=== PATIENT | female | born 1975 | race Caucasian/White ===

== ENCOUNTER 2017-04-06 05:18 | Day surgery (SDC) | payer OTHER ==
[2017-04-01 10:33] VITALS: BMI 28.3
--- NOTE | 2017-04-06 09:04 | HP ---
History & Physical Update - History History: No Change - Physical Physical: No Change - Assessment Assessment: No Change - Plan Plan: No Change (for hysteroscopy, D&C)
[2017-04-06] MEDS ORDERED: ACETAMINOPHEN 325 MG TABLET (FP) PO PRN (09:05)
[2017-04-06] MEDS ORDERED: IBUPROFEN 800 MG/8 ML IJ IVPB PRN (09:05)
[2017-04-06] MEDS ORDERED: LACTATED RINGERS SOLUTION 1,000 ML IV SCH (09:15)
[2017-04-06] MEDS ORDERED: MIDAZOLAM HCL 2 MG/2 ML SINGLE DOSE VIAL ONE (09:52)
[2017-04-06] MEDS ORDERED: PROPOFOL 20 ML ONE (09:52)
[2017-04-06] MEDS ORDERED: KETOROLAC TROMETHAMINE 30 MG/1 ML VIAL ONE (10:34)
[2017-04-06] MEDS ORDERED: oxyCODONE HCL 5 MG TABLET PO PRN (10:59)
[2017-04-06] MEDS ORDERED: ONDANSETRON 4 MG/2 ML VIAL IVPUSH PRN (10:59)
[2017-04-06] MEDS ORDERED: ACETAMINOPHEN 1000 MG/100 ML VIAL (NON FORMULARY) IVPB PRN (11:00)
[2017-04-06 12:15] VITALS: TEMP 97.9
--- NOTE | 2017-04-06 13:31 | OP ---
Operative Note - Note: Operative Date: 04/06/17 ([id number]) Pre-Operative Diagnosis: AUB, possible submucosal fibroid/polyp Operation: hysteroscopy, D&C Findings: anterior edometrial polypoid tissue Post-Operative Diagnosis: Same as Pre-op Surgeon: Keya Lima Anesthesiologist/CAREER CONSULTANT: Laura Berkowitz Anesthesia: General Specimens Removed: endometrial currettings Estimated Blood Loss (mls): 25 Operative Report Dictated: Yes
[2017-04-06 14:11] VITALS: BP 117/68; PULSE 86
--- NOTE | 2017-04-07 07:09 | OP ---
DATE OF OPERATION: 04/06/2017 PREOPERATIVE DIAGNOSIS: Abnormal uterine bleeding and suspected submucosal uterine fibroid. POSTOPERATIVE DIAGNOSIS: Abnormal uterine bleeding and suspected submucosal uterine fibroid, with anterior intrauterine polypoid tissue. PROCEDURE: Hysteroscopy, dilatation and curettage. SURGEON: Keya Lima DO SALES ASSOC: None. ANESTHESIA: General by Laura Berkowitz MD. COMPLICATIONS: Inability to enter the uterus with operative hysteroscope, resulting in cervical laceration. ESTIMATED BLOOD LOSS: 25 mL. SPECIMENS REMOVED: Included contents of uterus and endometrial curettings. COUNTS: Sponge, needle, and instrument count correct at the end of procedure. DISPOSITION: Stable to PACU. BRIEF HISTORY AND PROCEDURE: The patient is a 41-year-old female who had been seen in my office with complaints of abnormal uterine bleeding. Patient had an ultrasound and a saline infusion sonography done revealing most likely a submucosal uterine fibroid versus a polyp. Patient was counseled on her options and elected to undergo a hysteroscopy, dilation and curettage, possible myomectomy. Patient was taken to the operating room on April 06, 2017, after consents were confirmed. She was placed in the dorsal lithotomy position and given general anesthesia by Dr. Laura Berkowitz. She was prepped and draped in the usual sterile fashion and a hard timeout was performed. A speculum was placed inside the vagina. The anterior lip of the cervix was grasped with a single-tooth tenaculum, and the cervix was serially dilated to accommodate an operative hysteroscope. When the hysteroscope was attempted to be inserted into the uterine cavity there was resistance, and the tenaculum did tear from the anterior lip of the cervix, resulting in cervical laceration. A Lopez tenaculum was then applied, and the cervix was dilated even further, and again the operative hysteroscope was unable to be advanced into the uterus. At this point diagnostic hysteroscope was inserted into the uterus up to the fundus, and it appeared that no discrete submucosal fibroid was appreciated; however, there was a good amount of polypoid tissue in the anterior wall of the uterus. At this point a sharp D&C as well as a suction D&C was performed, and all the intrauterine contents were removed. After this was completed, the anterior lip of the cervix was examined, and 2 [id number] sutures were placed along the cervical laceration to achieve hemostasis. All instruments were removed from vagina. All sponge, needle, and instrument counts were reported to be correct. The patient tolerated the procedure well, recovered in stable condition in the PACU after the procedure. KEYA LIMA DO /[id number]
--- NOTE | 2017-04-07 13:51 | PATH ---
Surgical Pathology Report Patient Name: EDWIN RACHEL [facility]. Rec. #: [id number] /Age/Gender: 1975 (Age: 41) / F Account: [id number] Location: [facility] SURGICAL Taken: 04/06/2017 Received: 04/06/2017 Reported: 04/07/2017 Physicians: Keya Lima M.D. Specimen(s) Received A: ENDOMETRIAL CURETTINGS B: UTERINE CONTENTS Clinical History Submucous fibroid Final Diagnosis A. ENDOMETRIUM, CURETTAGE: FRAGMENTS OF SECRETORY ENDOMETRIUM. B. CONTENTS OF UTERUS: POLYPOID AND NON-POLYPOID FRAGMENTS OF SECRETORY ENDOMETRIUM WITH AREAS SUGGESTIVE OF ENDOMETRIAL POLYP. Electronically Signed Maxim Jordan M.D. Gross Description A. Received in formalin labeled "endometrial curetting" is a 4.0 x 2.5 x 0.3 cm aggregate of johnson-red soft tissue fragments admixed with blood clot. The formalin is filtered and the specimen is entirely submitted in 2 cassettes. B. Received in formalin labeled "contents of uterus" is a 4.5 x 3.3 x 0.4 cm aggregate of johnson-pink soft tissue fragments. The formalin is filtered and the specimen is entirely submitted in 4 cassettes. 04/06/201704/06/2017
== END 2017-04-06 14:11 | disposition home or self-care (01) ==
LOC: JASU-SURG 05:18
PROVIDERS: ATTEND Obstetrics & Gynecology
PROC: 0UDB8ZX Extraction of Endometrium, Via Natural or Artificial Opening Endoscopic, Diagnostic (ICD-10-PCS; principal; 2017-04-06 10:00)
DX: N93.9 Abnormal uterine and vaginal bleeding, unspecified (principal); N84.0 Polyp of corpus uteri; D25.0 Submucous leiomyoma of uterus; S37.63XA Laceration of uterus, initial encounter; Y83.8 Other surgical procedures as the cause of abnormal reaction of the patient, or of later complication, without mention of misadventure at the time of the procedure; Y76.3 Surgical instruments, materials and obstetric and gynecological devices (including sutures) associated with adverse incidents; Y92.234 Operating room of hospital as the place of occurrence of the external cause; Y99.9 Unspecified external cause status
CPT/HCPCS: 84703; 88305-TC; 94760

== ENCOUNTER 2018-08-24 07:00 | Inpatient (IN) | payer OTHER ==
[2018-08-24 08:08] VITALS: BMI 31.9
--- NOTE | 2018-08-24 08:21 | HP ---
Past Medical History - Admission Chief Complaint: Here for c section History of Present Illness: 42 y/o with SIUP at 39 weeks here for scheduled for elective primary section and tubal ligation. complicated by AMA, A1GDM, EFW >97% and baby with umbilical cord cyst. Pt admits to +FM, no CTX/LOF/VB. No complaints today. History Source: Patient, Medical Record Limitations to Obtaining History: No Limitations - Past Medical History ...: 3 ...Para: 2 ...Term: 2 ...: 0 ...Spon : 0 ...Induced : 0 ...Multiple Gestation: 0 ...LMP: 11/08/17 ...EDC by Sono: 08/31/18 - Past Surgical History Hx Myomectomy: No (h/o hysteroscopic myomectomy but no abdominal myomectomy) Hx Transabdominal Cerclage: No - Smoking History Smoking history: Never smoked Have you smoked in the past 12 months: No - Alcohol/Substance Use Hx Alcohol Use: No - Social History Usual Living Arrangement: Yes: With Spouse ADL: Independent History of Recent Travel: No Home Medications - Allergies Allergies/Adverse Reactions: Allergies Allergy/AdvReac Type Severity Reaction Status Date / Time No Known Drug Allergies Allergy Verified 08/24/18 07:49 - Home Medications Home Medications: Ambulatory Orders Multivitamin with Iron [Daily Sundar with Iron] 1 each PO DAILY 04/01/17 Ferrous Sulfate [Iron] 325 mg PO BID 08/24/18 Physical Exam - Maternity Vital Signs: Vital Signs Temperature 98.2 F 08/24/18 08:01 Pulse Rate 80 08/24/18 08:01 Respiratory Rate 18 08/24/18 08:01 Blood Pressure 105/63 08/24/18 08:01 O2 Sat by Pulse Oximetry (%) Constitutional: Yes: Well Nourished, No Distress, Calm Eyes: Yes: Conjunctiva Clear, EOM Intact Neck: Yes: Trachea Midline Lungs: Clear to auscultation Breast(s): Yes: WNL - Abdominal Exam/OB Fundal Height: 40 Number of Fetuses: Single Presentation: Vertex Monitor Mode: External Category: I Accelerations: Uniform Decelerations: None - Vaginal Exam/OB Vaginal Bleediing: No Amniotic Membrane Status: Intact - Physical Exam Psychiatric: Yes: Alert, Oriented Hemorrhage Risk Assessment - Risk Factors Medium Risk Factors: Yes: None High Risk Factors: Yes: None Risk Score: 1 Risk Level: Medium Risk Problem List - Problems (1) Advanced maternal age (AMA), 40 years or greater Code(s): ALP5442 - (2) Encounter for sterilization Code(s): Z30.2 - ENCOUNTER FOR STERILIZATION (3) Term Code(s): Z34.80 - ENCOUNTER FOR SUPRVSN OF NORMAL , UNSP TRIMESTER Assessment/Plan 42 y/o for elective primary section and BTL R/B/A to procedure discussed in office at length, reconfirmed today consents signed today NPO Mcdaniel anesthesia/nursing aware
[2018-08-24] MEDS ORDERED: ELECTROLYTE-148 SOLN 500 ML IV ONE (08:23)
[2018-08-24] MEDS ORDERED: CITRIC ACID/SODIUM CITRATE 30 ML UNIT-DOSE CUP PO ONE (08:23)
[2018-08-24] MEDS ORDERED: TUBERCULIN PPD 5 TU/0.1ML SYRINGE (IN PATIENT USE ONLY) ID ONE (08:45)
[2018-08-24] MEDS ORDERED: ELECTROLYTE-148 SOLN 1,000 ML IV SCH (09:00)
[2018-08-24] MEDS ORDERED: morphine SULFATE/Preservative Free 0.5 MG/ML (1cc Syringe) ONE (11:40)
[2018-08-24] MEDS ORDERED: ceFAZolin SODIUM 1 GM VIAL ONE ×2 (11:59)
[2018-08-24] MEDS ORDERED: IBUPROFEN 600 MG TABLET (FP) PO PRN (12:41)
[2018-08-24] MEDS ORDERED: OXYTOCIN 20 UNITS in 0.9% NS 20 UNIT/1,000 ML INFUS.BAG IV ONE (13:57)
[2018-08-24] MEDS: OXYTOCIN 20 UNITS in 0.9% NS 20 UNIT/1,000 ML INFUS.BAG IV SCH (14:00)
[2018-08-24] MEDS ORDERED: IBUPROFEN 800 MG/8 ML IJ IVPB PRN (14:58)
[2018-08-24] MEDS ORDERED: oxyCODONE HCL 5 MG TABLET PO PRN ×2 (14:58)
[2018-08-24] MEDS ORDERED: METHYLERGONOVINE MALEATE 0.2 MG/1 ML AMP IM PRN (14:58)
--- NOTE | 2018-08-24 20:06 | PN ---
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
--- NOTE | 2018-08-24 20:06 | OP ---
Operative Note - Note: Operative Date: 08/24/18 Pre-Operative Diagnosis: multiparity, SIUP at 39 weeks, desire for elective delivery and tubal ligation Operation: primary low transverse delivery and tubal ligation ( modified kg) Findings: normal b/l tubes and ovaries live male infant Post-Operative Diagnosis: Same as Pre-op Surgeon: Keya Lima [employer]ision Farming Coordinator: Alexei Randall Anesthesiologist/HEATING AND BLENDING SUPERVISOR: Ady Gomez Anesthesia: Spinal Specimens Removed: placenta, portions of right and left fallopian tube Estimated Blood Loss (mls): 600 Operative Report Dictated: Yes
[2018-08-24] MEDS: FERROUS SO4 325 MG TABLET (FP) PO SCH (23:19)
--- NOTE | 2018-08-25 05:53 | PN ---
Progress Note (SOAP) - Subjective Chief Complaint: Pt doing well - Current Medications Current Medications: Active Medications Acetaminophen (Tylenol -) 650 mg PO Q4H PRN PRN Reason: PAIN LEVEL 1-5 Bisacodyl (Dulcolax Suppository -) 10 mg RC PRN PRN PRN Reason: CONSTIPATION Diphtheria/Tetanus/Acell Pertussis (Boostrix -) 0.5 ml IM .ONCE ONE Stop: 08/25/18 14:01 Ferrous Sulfate (Feosol -) 325 mg PO BID COUNTS INCLUDE 234 BEDS AT THE [facility] Last Admin: 08/24/18 23:19 Dose: Not Given Oxytocin/Sodium Chloride (Normal Saline+20 Units Oxytocin -) 20 unit in 1,000 mls @ 125 mls/hr IV ASDIR COUNTS INCLUDE 234 BEDS AT THE [facility] Last Admin: 08/24/18 14:00 Dose: 125 mls/hr Ibuprofen (Motrin -) 600 mg PO Q4H PRN PRN Reason: PAIN LEVEL 1 - 3 Ibuprofen (Caldolor Injection -) 800 mg IVPB Q8H PRN PRN Reason: PAIN LEVEL 6-10 Methylergonovine Maleate (Methergine Injection -) 0.2 mg IM Q4H PRN PRN Reason: Excessive Bleeding (L&D) Oxycodone HCl (Roxicodone -) 10 mg PO Q4H PRN PRN Reason: PAIN LEVEL 7 - 10 Oxycodone HCl (Roxicodone -) 5 mg PO Q4H PRN PRN Reason: PAIN LEVEL 4 - 6 Simethicone (Mylicon -) 80 mg PO Q4H PRN PRN Reason: GAS - Objective Vital Signs: Vital Signs Temperature 97.9 F 08/25/18 02:00 Pulse Rate 90 08/25/18 02:00 Respiratory Rate 18 08/25/18 05:00 Blood Pressure 90/55 L 08/25/18 02:00 O2 Sat by Pulse Oximetry (%) 100 08/24/18 14:07 Constitutional: Yes: Well Nourished, No Distress Neck: Yes: WNL Cardiovascular: Yes: WNL Respiratory: Yes: WNL Gastrointestinal: Yes: WNL, Soft Genitourinary: Yes: WNL ....Post : Yes: Uterus firm, Uterus non-tender Breast(s): Yes: WNL Musculoskeletal: Yes: WNL Extremities: Yes: WNL Edema: No Integumentary: Yes: WNL Wound/Incision: Yes: Clean/Dry, Well Approximated Neurological: Yes: WNL, Alert, Oriented Problem List - Problems (1) delivery delivered Code(s): O82 - ENCOUNTER FOR DELIVERY WITHOUT INDICATION Assessment/Plan Pod #1 SP repeat CS BTL Plan Continue present mangement
[2018-08-25 07:37] LABS: BASO % 0.3 % (0-2.0); EOS % 0.5 % (0-4.5); HEMATOCRIT 35.6 % (32.4-45.2); HEMOGLOBIN 12.4 GM/dL (10.7-15.3); LYMPH % 7.1 % (8-40); MCH 33.1 pg (25.7-33.7); MCHC 34.9 g/dl (32.0-36.0); MEAN PLT VOLUME 9.7 fl (7.5-11.1); MONO % 6.9 % (3.8-10.2); NEUT % 85.2 % (42.8-82.8); PLATELET COUNT 211 K/MM3 (134-434); RBC 3.74 M/mm3 (3.60-5.2); RDW 13.2 % (11.6-15.6); WHITE BLOOD COUNT 12.3 K/mm3 (4.0-10.0)
[2018-08-25] MEDS ORDERED: SODIUM CHLORIDE 500 ML IV SCH (09:40)
[2018-08-25] MEDS: FERROUS SO4 325 MG TABLET (FP) PO SCH ×2 (09:46→21:51)
--- NOTE | 2018-08-25 10:04 | PN ---
Progress Note (short form) - Note Progress Note: Post op day#1.S/P C Section under spinal anesthesia with duramorph uneventful.Patient stable and c/o some pain for which she is on medication.No any anesthesia related problem.Patient DC from the anesthesia care.
[2018-08-25] MEDS ORDERED: SODIUM CHLORIDE 1,000 ML IV SCH (10:40)
[2018-08-25] MEDS: SIMETHICONE 80 MG TAB.CHEW (FP) PO PRN ×2 (11:00→16:24)
--- NOTE | 2018-08-25 11:55 | EKG ---
Test Reason : Blood Pressure : / mmHG Vent. Rate : 081 BPM Atrial Rate : 081 BPM P-R Int : 128 ms QRS Dur : 090 ms QT Int : 344 ms P-R-T Axes : 040 -08 032 degrees QTc Int : 399 ms SINUS RHYTHM WITH OCCASIONAL PREMATURE VENTRICULAR COMPLEXES LOW VOLTAGE QRS BORDERLINE ECG NO PREVIOUS ECGS AVAILABLE Confirmed by ELIJAH COBURN, BELEN ([id number]) on 08/25/2018 11:55:10 AM Referred By: BRODIE GUAN DR Confirmed By:BELEN NAVA MD
[2018-08-25] MEDS ORDERED: DIPHTH,PERTUSS(ACELL),TET 0.5 ML DISP.SYRIN IM ONE (14:00)
[2018-08-25] MEDS ORDERED: BISACODYL 10 MG SUPP.RECT RC PRN (14:58)
[2018-08-25] MEDS: OXYTOCIN 20 UNITS in 0.9% NS 20 UNIT/1,000 ML INFUS.BAG IV SCH (15:08)
[2018-08-25] MEDS: ACETAMINOPHEN 325 MG TABLET (FP) PO PRN (16:24)
[2018-08-26] MEDS: IBUPROFEN 600 MG TABLET (FP) PO PRN ×2 (02:23→21:36)
[2018-08-26] MEDS: ACETAMINOPHEN 325 MG TABLET (FP) PO PRN ×2 (02:23→21:37)
--- NOTE | 2018-08-26 06:27 | PN ---
Progress Note (SOAP) - Subjective Chief Complaint: Pt doing well - Current Medications Current Medications: Active Medications Acetaminophen (Tylenol -) 650 mg PO Q4H PRN PRN Reason: PAIN LEVEL 1-5 Last Admin: 08/26/18 02:23 Dose: 650 mg Bisacodyl (Dulcolax Suppository -) 10 mg RC PRN PRN PRN Reason: CONSTIPATION Ferrous Sulfate (Feosol -) 325 mg PO BID JUAN Last Admin: 08/25/18 21:51 Dose: 325 mg Oxytocin/Sodium Chloride (Normal Saline+20 Units Oxytocin -) 20 unit in 1,000 mls @ 125 mls/hr IV ASDIR [facility] Last Admin: 08/25/18 15:08 Dose: Not Given Sodium Chloride (Normal Saline -) 1,000 mls @ 125 mls/hr IV ASDIR [facility] Last Admin: 08/25/18 10:20 Dose: 125 mls/hr Ibuprofen (Motrin -) 600 mg PO Q4H PRN PRN Reason: PAIN LEVEL 1 - 3 Last Admin: 08/26/18 02:23 Dose: 600 mg Ibuprofen (Caldolor Injection -) 800 mg IVPB Q8H PRN PRN Reason: PAIN LEVEL 6-10 Methylergonovine Maleate (Methergine Injection -) 0.2 mg IM Q4H PRN PRN Reason: Excessive Bleeding (L&D) Oxycodone HCl (Roxicodone -) 10 mg PO Q4H PRN PRN Reason: PAIN LEVEL 7 - 10 Oxycodone HCl (Roxicodone -) 5 mg PO Q4H PRN PRN Reason: PAIN LEVEL 4 - 6 Simethicone (Mylicon -) 80 mg PO Q4H PRN PRN Reason: GAS Last Admin: 08/25/18 16:24 Dose: 80 mg - Objective Vital Signs: Vital Signs Temperature 97.9 F 08/25/18 22:00 Pulse Rate 88 08/25/18 22:00 Respiratory Rate 20 08/25/18 22:00 Blood Pressure 104/60 08/25/18 22:00 O2 Sat by Pulse Oximetry (%) 100 08/24/18 14:07 Constitutional: Yes: Well Nourished, No Distress Cardiovascular: Yes: WNL Respiratory: Yes: WNL ....Post : Yes: Uterus firm, Uterus non-tender Extremities: Yes: WNL Peripheral Pulses WNL: No Edema: No Wound/Incision: Yes: Dressing Dry and Intact Labs Lab Results: CBC, BMP 08/25/18 06:45 Problem List - Problems (1) delivery delivered Code(s): O82 - ENCOUNTER FOR DELIVERY WITHOUT INDICATION Assessment/Plan Pod #2 SP repeat CS BTL Plan Continue present mangement
--- NOTE | 2018-08-26 09:38 | OP ---
DATE OF OPERATION: 08/24/2018 PREOPERATIVE DIAGNOSES: Single intrauterine at 39 weeks, desire for elective primary delivery, desire for sterilization, multiparity. POSTOPERATIVE DIAGNOSES: Single intrauterine at 39 weeks, desire for elective primary delivery, desire for sterilization, multiparity. PROCEDURE: Primary low transverse section and bilateral tubal ligation. SURGEON: Keya Lima DO SURGICAL ENDOSCOPIST: JANES Cali ANESTHESIOLOGIST: Ady Gomez MD provided spinal anesthesia. ESTIMATED BLOOD LOSS: 600 mL COMPLICATIONS: None. SPECIMENS REMOVED: Placenta and portions of left and right fallopian tubes. DISPOSITION: Stable to PACU. COUNT: Sponge, needle, and instrument count correct. BRIEF HISTORY AND PROCEDURE: Patient is a 42-year-old female who I have been following throughout her in the office and expressed desire for an elective primary section and bilateral tubal ligation. The patient was counseled on her options in the office, and consents for and tubal ligation were signed. Patient was admitted to [facility] on August 24, 2018. Consents for the procedure were signed that morning. Risks, benefits, and alternatives were discussed. She was then taken back to the operating room and given spinal anesthesia by Dr. Ady Gomez without difficulty, placed in the dorsal supine position. A Mcdaniel catheter was placed under sterile conditions, and she was prepped and draped in the usual sterile fashion. A hard timeout was performed. A Pfannenstiel skin incision was created in the skin with scalpel and carried to the underlying layer of rectus fascia with the Bovie. The fascia was incised on either side of midline sharply, and the fascial incision was extended in a superolateral direction sharply. The fascia was tented upward and dissected off the underlying layer of rectus muscle sharply. The rectus muscle was retracted laterally, and the peritoneum was entered bluntly. A bladder blade was inserted. A transverse incision in the lower uterine segment was completed sharply and extended in a superolateral direction bluntly. The fetus was delivered from the occiput transverse position. Bilateral shoulders were delivered with ease along with the remainder of the . The cord was clamped and cut, and the was taken over to the warmer to be assessed by the nursery staff. The placenta was delivered intact and manually extracted. The uterus was exteriorized from the abdomen, inspected, and cleared of all amniotic membrane, placental tissue, and debris with a dry lap sponge. The hysterotomy was reapproximated in a double-layer closure, first using 1 Vicryl in a running locked fashion, second using 0 Biosyn in a running fashion. Excellent hemostasis was achieved. Attention was then turned to the right fallopian tube, the mid-portion which was elevated with a Castle clamp and tied off with suture and excised and sent to Pathology. The same was repeated on the left fallopian tube. Bilateral tubal ligation sites were noted to be hemostatic. Posterior cul-de-sac was suctioned. The uterus was placed back in the abdomen. Bilateral tubal sites again were noted to be hemostatic. The uterine incision was noted to be hemostatic, and all blood clot and debris were removed. At this time, the peritoneum was reapproximated using 2-0 chromic in a running fashion. The musculature was reapproximated using 2 interrupted sutures using 2-0 chromic suture. The fascia was reapproximated using 1 Vicryl in a running locked fashion. The subcutaneous tissue was irrigated and reapproximated using 1 Vicryl in a running fashion. The skin was reapproximated in a subcuticular fashion using 0 Vicryl, and Steri-Strips were applied. Sponge, needle, and instrument count was reported to be correct. The patient tolerated the procedure well, recovering in stable condition in the PACU after the procedure. KEYA LIMA DO /[id number]
[2018-08-26] MEDS: FERROUS SO4 325 MG TABLET (FP) PO SCH ×2 (09:43→21:36)
[2018-08-27 07:45] LABS: BASO % 0.4 % (0-2.0); EOS % 1.8 % (0-4.5); HEMATOCRIT 30.9 % (32.4-45.2); HEMOGLOBIN 11.1 GM/dL (10.7-15.3); MEAN CELL VOLUME 94.5 fl (80-96); MEAN PLT VOLUME 9.2 fl (7.5-11.1); MONO % 7.2 % (3.8-10.2); NEUT % 75.6 % (42.8-82.8); PLATELET COUNT 239 K/MM3 (134-434); RBC 3.27 M/mm3 (3.60-5.2); RDW 12.8 % (11.6-15.6); WHITE BLOOD COUNT 9.8 K/mm3 (4.0-10.0)
--- NOTE | 2018-08-27 09:24 | DS ---
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 Vital Signs: Vital Signs Temperature 98.4 F 08/26/18 22:00 Pulse Rate 88 08/26/18 22:00 Respiratory Rate 20 08/26/18 22:00 Blood Pressure 100/66 08/26/18 22:00 O2 Sat by Pulse Oximetry (%) 100 08/24/18 14:07 Constitutional: Yes: Well Nourished, No Distress, Calm Eyes: Yes: Conjunctiva Clear, EOM Intact HENT: Yes: Atraumatic, Normocephalic Neck: Yes: Supple, Trachea Midline Cardiovascular: Yes: Regular Rate and Rhythm Respiratory: Yes: Regular, CTA Bilaterally Gastrointestinal: Yes: Normal Bowel Sounds, Soft ....Post : Yes: Uterus firm, Uterus non-tender Wound/Incision: Yes: Clean/Dry, Well Approximated Neurological: Yes: Alert, Oriented Psychiatric: Yes: Alert, Oriented Labs: CBC, BMP 08/27/18 06:30 Delivery - Delivery Section: Primary, Low Flap Transverse Type of Anesthesia: Spinal Episiotomy/Laceration: None EBL (cc): 600 Delivery, Single - Stages of Labor Date of Delivery: 08/24/18 Time of Delivery: 12:00 Time Placenta Delivered: 12:02 Placenta: Yes: Manual Removal - Condition of Infant 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 Present: No Infant Gender: Male Weight: 9 lb Position: Left, OA Total Hours ROM (Hrs/Mins): 3mins - 1 Minute Total Score: 9 5 Minutes Total Score: 9 - Feeding Plan Initial Plan: Elected not to breastfeed exclusively throughout hospitalization Discharge Summary Reason For Visit: C SECTION Current Active Problems Advanced maternal age (AMA), 40 years or greater (Acute) delivery delivered (Acute) Encounter for sterilization (Acute) Term (Acute) Procedures: Principal: Primary LTCS and bilateral tubal ligation Hospital Course: PT admitted on 08/24/18 for scheduled primary delivery and tubal ligation. Pt underwent uncomplicated surgery and post recovery and was discharged home on post op day 3. Condition: Good - Instructions Disposition: HOME - Home Medications Comprehensive Discharge Medication List: Ambulatory Orders Multivitamin with Iron [Daily Sundar with Iron] 1 each PO DAILY 04/01/17 Ferrous Sulfate [Iron] 325 mg PO BID 08/24/18
[2018-08-27 09:57] VITALS: BP 128/79; PULSE 72; TEMP 99.1
[2018-08-27] MEDS: FERROUS SO4 325 MG TABLET (FP) PO SCH (10:17)
--- NOTE | 2018-09-03 20:39 | PATH ---
Surgical Pathology Report Patient Name: EDWIN RACHEL Med. Rec. 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 Specimen(s) Received A: PLACENTA B: RIGHT PORTION OF FALLOPIAN TUBE C: LEFT PORTION OF FALLOPIAN TUBE Clinical History , 39 weeks [id number] Fibroids removed 2017, x2 Final Diagnosis A. PLACENTA, SECTION: 446 G THIRD TRIMESTER PLACENTA WITH TRIVASCULAR UMBILICAL CORD AND MILD ACUTE CHORIOAMNIONITIS. B. FALLOPIAN TUBE, RIGHT, PARTIAL EXCISION: FULL LUMINAL PORTION OF UNREMARKABLE FALLOPIAN TUBE. C. FALLOPIAN TUBE, LEFT, PARTIAL EXCISION: FULL LUMINAL PORTION OF UNREMARKABLE FALLOPIAN TUBE. Electronically Signed Eun Musa M.D. Gross Description A. The specimen is received fresh labeled placenta and is a 446 gram, 15.0 x 13.5 x 3.3 cm. placenta with attached membranes and umbilical cord. The attached membranes are johnson, thick, cloudy and insert marginally. The umbilical cord measures 30 cm. in length and averages 1.2 cm. in diameter. The cord inserts eccentrically, 4.5 cm. to the nearest margin. No true knots or strictures are identified. Cut surface of the umbilical cord reveals 3 vessels. The surface is lira-blue with minimal fibrin deposition and appropriate caliber vessels. The maternal surface is red-brown with focal defects. Sectioning reveals red-brown, spongy parenchyma. No lesions are identified. Obstetrical Nurse sections are submitted in three cassettes as follows: 1- membrane rolls and umbilical cord; 2-3- full thickness sections of placenta. B. Received in formalin labeled "right portion of fallopian tube," is a 2.3 cm in length portion of fallopian tube. No fimbria are present. The outer surface is johnson-love and smooth. Sectioning reveals an unremarkable lumen. Obstetrical Nurse sections are submitted in one cassette. C. Received in formalin labeled "left portion of fallopian tube," is a 2.3 cm in length portion of fallopian tube. No fimbria are present. The outer surface is johnson-love and smooth. Sectioning reveals an unremarkable lumen. Obstetrical Nurse sections are submitted in one cassette. 09/02/2018 saudi09/02/2018
== END 2018-08-27 14:00 | disposition home or self-care (01) | DRG 540 ==
LOC: JLDR 07:00 → J3W 14:07
PROVIDERS: ADMIT Obstetrics & Gynecology; ATTEND Obstetrics & Gynecology
PROC: 10D00Z1 Extraction of Products of Conception, Low, Open Approach (ICD-10-PCS; principal; 2018-08-24)
PROC: 0UL70DZ Occlusion of Bilateral Fallopian Tubes with Intraluminal Device, Open Approach (ICD-10-PCS; 2018-08-24)
DX: O48.0 Post-term pregnancy (principal); O24.414 Gestational diabetes mellitus in pregnancy, insulin controlled; O36.63X0 Maternal care for excessive fetal growth, third trimester, not applicable or unspecified; O34.29 Maternal care due to uterine scar from other previous surgery; Z3A.40 40 weeks gestation of pregnancy; Z37.0 Single live birth; Z30.2 Encounter for sterilization
CPT/HCPCS: 36415; 71046-TC-FY; 85025; 88302-TC; 88307-TC; 90715; 93005; 93010; J7030

== ENCOUNTER 2018-09-04 18:23 | Emergency (ER) | payer OTHER ==
[2018-09-04 18:33] VITALS: BP 109/65; PULSE 16; TEMP 98.6; BMI 29.9
--- NOTE | 2018-09-04 19:49 | PDOC ---
History of Present Illness - General Chief Complaint: Abscess Boil Stated Complaint: ABSCESS BOIL Time Seen by Provider: 09/04/18 19:08 History Source: Patient Exam Limitations: No Limitations - History of Present Illness Initial Comments: 09/04/18 19:35 Pt is a 42yo F with PMH of anemia, GDM, s/p Cesarian section with BTL 08/25/2018 presenting to ED with complaints of "bump on the L side" and pain at the incision. Pt states she noticed the bump yesterday and started to have pain which feels sharp. Pain does not radiate. Denies drainage. She states that she is having vaginal bleeding and that it ranges from black to dark brown with clots. Denies discharge, cramps, fevers, chills, abdominal pain, n/v/d back pain. Past History - Past Medical History Allergies/Adverse Reactions: Allergies Allergy/AdvReac Type Severity Reaction Status Date / Time No Known Drug Allergies Allergy Verified 08/24/18 07:49 Home Medications: Ambulatory Orders Multivitamin with Iron [Daily Sundar with Iron] 1 each PO DAILY 04/01/17 Ferrous Sulfate [Iron] 325 mg PO BID 08/24/18 Ibuprofen [Motrin -] 600 mg PO QID PRN #28 tablet 08/27/18 Oxycodone HCl/Acetaminophen [Percocet 5-325 mg Tablet -] 1 tab PO Q4H #20 tablet MDD 6 08/27/18 Anemia: Yes (H/O) Asthma: No Cancer: No Cardiac Disorders: No COPD: No Diabetes: Yes (diet controlled) HTN: No Seizures: No Thyroid Disease: No - Immunization History Immunization Up to Date: Yes - Suicide/Smoking/Psychosocial Hx Smoking History: Never smoked Have you smoked in the past 12 months: No Hx Alcohol Use: No Drug/Substance Use Hx: No Hx Substance Use Treatment: No Review of Systems - Review of Systems Constitutional: No: Chills, Fever, Weakness HEENTM: No: Symptoms Reported Respiratory: No: Symptoms reported Cardiac (ROS): No: Symptoms Reported ABD/GI: No: Constipated, Diarrhea, Nausea, Rectal Bleeding, Vomiting : Yes: See HPI. No: Burning, Dysuria Musculoskeletal: No: Symptoms Reported Integumentary: Yes: See HPI Neurological: No: Symptoms reported *Physical Exam - Vital Signs Last Vital Signs Temp Pulse Resp BP Pulse Ox 98.6 F 16 L 18 109/65 98 09/04/18 18:29 09/04/18 18:29 09/04/18 18:29 09/04/18 18:29 09/04/18 18:29 - Physical Exam General Appearance: Yes: Nourished, Appropriately Dressed. No: Apparent Distress HEENT: positive: EOMI, ZEESHAN Neck: positive: Trachea midline, Supple. negative: Lymphadenopathy (R), Lymphadenopathy (L) Respiratory/Chest: positive: Lungs Clear, Normal Breath Sounds. negative: Crackles, Rales, Rhonchi, Stridor, Wheezing Cardiovascular: positive: Regular Rhythm, Regular Rate, S1, S2. negative: Edema , JVD, Murmur Vascular Pulses: Carotid (R): 2+, Carotid (L): 2+, Dorsalis-Pedis (R): 2+, Doralis-Pedis (L): 2+ Gastrointestinal/Abdominal: positive: Normal Bowel Sounds, Soft, Other. negative: Distended, Guarding, Rebound, Tenderness Musculoskeletal: negative: CVA Tenderness Extremity: positive: Normal Capillary Refill, Normal Inspection, Pelvis Stable. negative: Pedal Edema, Swelling, Calf Tenderness Integumentary: positive: Normal Color, Dry, Warm, Other (healing surgical incision site in lower abdomen. L side has area of exposed tissue, does not open , no drainage. Firm nodules palpated along incision. Slight tenderness on L side. No fluctuance, slight induration. No erythema. 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 Pt states she noticed the bump yesterday and started to have pain which feels sharp. Pain does not radiate. Denies drainage. She states that she is having vaginal bleeding and that it ranges from black to dark brown with clots. Denies discharge, cramps, fevers, chills, abdominal pain, n/v/d back pain. Vitals: wnl Low suspicion for abscess or uterine abscess (no vaginal discharge complaints, no abdominal pain..pain in localized to incision site on L side). No fluctuance no purulence expressed. Pt may have slight infection however no abx needed at this time. Pt advised to clean incision with soap and water. Given strict return precautions. Pt is hemodynamically stable. Will be dc home. *DC/Admit/Observation/Transfer Diagnosis at time of Disposition: Post-op pain - Discharge Dispostion Disposition: HOME Condition at time of disposition: Good Decision to Admit order: No - Referrals Referrals: Maulik Dsouza MD [Primary Care Provider] - Keya Lima DO [Staff Physician] - - Patient Instructions Additional Instructions: Ghassannataly te vieron en la [facility] por dolor y sensacin de un golpe en el sitio de la cesrea. No se ve infectado. Hay un elayne de la piel que no est completamente cerrada jacob no parece estar infectada. No creemos que tengas un absceso. Limpie el elayne diariamente con agua y jabn y squela. Asegrate de secar la piel. Regrese a la [facility] de emergencias si el dolor empeora, observa un drenaje desde el lugar de la incisin, la piel se ve ms yovanny, la protuberancia se agranda, desarrolla fiebre o si aparece algn sntoma nuevo. Cyndi You were seen in the emergency room today for pain and feeling a bump at the site of the . It does not look infected. There is an area of skin that is not completely closed but it does not appear infected. We do not think you have an abscess. Clean the area daily with soap and water and pat it dry. Make sure you pat the skin dry. Come back to the emergency room if pain gets worse, you notice drainage from the incision site, the skin appears more red, the bump gets bigger, you develop fever or if any new concerning symptom develops. Thank you - Post Discharge Activity
--- NOTE | 2018-09-04 20:06 | PDOC ---
Attending Attestation - Resident Resident Name: Sa Daisyira - ED Attending Attestation I have performed the following: I have examined & evaluated the patient, The case was reviewed & discussed with the resident, I agree w/resident's findings & plan, Exceptions are as noted - HPI HPI: 09/04/18 20:27 42 year old female patient with history of iron-deficiency anemia, s/p c- section ~15 days ago, uncomplicated presents with "bump" on right lateral portion of the incision site. The patient stated yesterday that she noted that she felt a small "bump". But no fevers, chills. Denies any worsening pain. Reports chronic vag bleeding since her , but not worse. 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 - Physicial Exam PE: 09/04/18 20:28 GENERAL: Awake, alert, and fully oriented, in no acute distress HEAD: No signs of trauma EYES: EOMI, sclera anicteric, conjunctiva clear ENT: Auricles normal inspection, hearing grossly normal, nares patent,Moist mucosa NECK: Normal ROM, supple, LUNGS: Breath sounds equal, clear to auscultation bilaterally. No wheezes, and no crackles HEART: Regular rate and rhythm, normal S1 and S2, no murmurs, rubs or gallops ABDOMEN: Soft, nontender, No guarding, no rebound. No masses scar well granulated and healing. R sided with no erythema or drainage or purulence. No signs of infection. EXTREMITIES: Normal range of motion, no edema. No clubbing or cyanosis. No cords, erythema, or tenderness NEUROLOGICAL: Cranial nerves II through XII grossly intact. Normal speech, normal gait SKIN: Warm, Dry, normal turgor, no rashes or lesions noted. - Medical Decision Making 09/04/18 20:29 Vital Signs Temp Pulse Resp BP Pulse Ox 98.6 F 16 L 18 109/65 98 09/04/18 18:29 09/04/18 18:29 09/04/18 18:29 09/04/18 18:29 09/04/18 18:29 This is a healing wound with no signs of infection at this time. The wound is just healing slower than the other parts of the abdomen. I encouraged good hygiene with soap and water. Return precautions given for worsening symptoms.
== END 2018-09-04 20:05 | disposition home or self-care (01) ==
LOC: JER 18:23 → JERFT 18:23 → JER 20:05
DX: O90.89 Other complications of the puerperium, not elsewhere classified (principal); G89.18 Other acute postprocedural pain; O24.430 Gestational diabetes mellitus in the puerperium, diet controlled; O90.81 Anemia of the puerperium
CPT/HCPCS: 99281-25

== ENCOUNTER → 2022-06-17 | Day surgery (SDC) | payer OTHER | END | disposition home or self-care (01) | LOC: JRADIR 10:54 | PROVIDERS: ATTEND Internal Medicine Endocrinology, Diabetes & Metabolism | PROC: 0G9G3ZX Drainage of Left Thyroid Gland Lobe, Percutaneous Approach, Diagnostic (ICD-10-PCS; principal; 2022-06-17) | DX: E04.1 Nontoxic single thyroid nodule (principal) | CPT/HCPCS: 10005; 76942; 88173; 88305-TC ==

== ENCOUNTER 2023-11-30 04:15 | Day surgery (SDC) | payer OTHER ==
[2023-11-25 10:19] VITALS: BMI 30.2
[2023-11-30] MEDS ORDERED: PROPOFOL 20 ML ONE (07:25)
[2023-11-30] MEDS ORDERED: MIDAZOLAM HCL 2 MG/2 ML SINGLE DOSE VIAL ONE (07:26)
[2023-11-30] MEDS ORDERED: FENTANYL CITRATE/PF 50 MCG/ML VIAL ONE ×4 (07:27→10:07)
[2023-11-30] MEDS ORDERED: GENTAMICIN SO4 80 MG/2 ML VIAL ONE (07:39)
[2023-11-30] MEDS ORDERED: LIDOCAINE 1%/EPI 1:100000 (20 ML MULTI DOSE VIAL) ONE (07:39)
[2023-11-30] MEDS ORDERED: oxyCODONE HCL 5 MG TABLET PO PRN (07:43)
[2023-11-30] MEDS: ceFAZolin SODIUM 1 GM VIAL IVPB ONE (08:17)
[2023-11-30] MEDS: LIDOCAINE 1%/EPI 1:100000 (20 ML MULTI DOSE VIAL) IJ ONE (08:23)
[2023-11-30] MEDS: GENTAMICIN SO4 80 MG/2 ML VIAL IVPB ONE (08:23)
[2023-11-30] MEDS ORDERED: BACITRACIN ZINC 15 GM TUBE TOPICAL OINTMENT ONE (09:19)
[2023-11-30] MEDS: BACITRACIN ZINC 15 GM TUBE TOPICAL OINTMENT TP ONE (09:21)
[2023-11-30] MEDS ORDERED: ONDANSETRON 4 MG/2 ML VIAL ONE (09:42)
[2023-11-30] MEDS: ONDANSETRON 4 MG/2 ML VIAL IVPUSH PRN (09:42)
[2023-11-30] MEDS ORDERED: LACTATED RINGERS SOLUTION 1,000 ML IV SCH (10:00)
[2023-11-30 10:20] VITALS: RESP 18
[2023-11-30 12:31] VITALS: BP 103/62; PULSE 71; TEMP 97.3
== END 2023-11-30 13:10 | disposition home or self-care (01) ==
LOC: JASU-SURG 04:15
PROVIDERS: ATTEND Urology
PROC: 0JUC0JZ Supplement of Pelvic Region Subcutaneous Tissue and Fascia with Synthetic Substitute, Open Approach (ICD-10-PCS; principal; 2023-11-30 09:00)
PROC: 0TSD0ZZ Reposition Urethra, Open Approach (ICD-10-PCS; 2023-11-30 09:00)
DX: N39.3 Stress incontinence (female) (male) (principal); N81.10 Cystocele, unspecified
CPT/HCPCS: 57240; 57288; C1771; 81025; 88305-TC; 94760